=== PATIENT | female | born 1975 | race Asian ===

== ENCOUNTER 2020-03-11 20:25 | Emergency (ER) | payer OTHER, MEDICAID, SELFPAY ==
[2020-03-11 20:34] VITALS: BP 126/60; PULSE 99; RESP 22; TEMP 36.7; O2SAT 96
--- NOTE | 2020-03-11 21:17 | ED.EXTPRO ---
HPI - Extremity Problem General Chief complaint: Extremity Problem,Nontraumatic Stated complaint: LEFT FOOT PAIN AND CELLULITIS Time Seen by Provider: 03/11/20 20:56 Source: patient Mode of arrival: Ambulatory Limitations: no limitations History of Present Illness HPI Narrative: 44-year-old female. History of pulmonary hypertension and heart failure. New to this area. Is on multiple medications. Has refills of these medications. Here for evaluation of swelling to her left lower extremity/foot. Patient states she has had the symptoms in the past and has been told that it potentially is an infection. She denies any fevers. No traumas. States it does hurt to walk. She does have redness/purple color to bilateral lower extremities however she states this is not new for her. She is not having any chest pain or shortness of breath. No weight gain. She is taking her Lasix which is 1 of her medicines. States that she occasionally takes an extra dose when she feels like she is retaining water. She has not had to do this recently. Review of Systems Constitutional Constitutional: Denies fever(s) and Denies headache(s) ENT Ears, Nose, Mouth, and Throat: Denies headache(s) Cardiovascular Cardiovascular: Denies chest pain and Denies dyspnea Respiratory Respiratory: Denies dyspnea Musculoskeletal Musculoskeletal: Denies tingling Comments: Left foot pain Integumentary/Breasts Comments: Redness to the left lower extremity Neurologic Neurologic: Denies behavioral changes, Denies headache(s) and Denies tingling Psychiatric Psychiatric: Denies behavioral changes Hematologic/Lymphatic Hematologic/Lymphatic: Denies easy bleeding and Denies easy bruising Patient History Medical History Pulmonary hypertension (Acute) Social History Smoking Status: Current every day smoker Smoking Status: Current every day smoker Exam Initial Vital Signs Initial Vital Signs: Vital Signs Temperature 98.1 F 03/11/20 20:34 Pulse Rate 99 H 03/11/20 20:34 Respiratory Rate 22 03/11/20 20:34 Blood Pressure 126/60 03/11/20 20:34 Pulse Oximetry 96 03/11/20 20:34 Const General: cooperative Limitations: mental status not altered [facility] Head: normal to inspection and normocephalic Cardio Pulses: dorsalis pedis present bilaterally Skin Other: She does have a purple/red discoloration of bilateral lower extremities that extends above the knees. She also has this on her upper extremities. Capillary refill approximately 3-4 seconds. She states that this discoloration is not new for her. She states it has been told in the past is related to her heart. Neuro Cognition: normal cognition Speech: speech normal Gait: normal gait Motor: muscle tone normal throughout Sensory Exam: no sensory deficits noted Extrem Other: Patient with 1+ pitting edema to the dorsum of the left foot. Rest of her orthopedic exam unremarkable. No tenderness to palpation over the left foot Course Vital Signs Vital signs: Vital Signs - 8 hr 03/11/20 20:34 Temperature 98.1 F Pulse Rate 99 H Respiratory Rate 22 Blood Pressure 126/60 Pulse Oximetry 96 MDM - Extremity (Nontraumatic) MDM Narrative Medical decision making narrative: I feel that the left lower extremity symptoms the patient has today is less likely a cellulitis. She is afebrile. She also reports no trauma. I have low suspicion for DVT. She does have significant color change to bilateral lower extremities but again patient states this is not new. We did discuss potentially increasing her Lasix over the next couple days to see if this does not improve her symptoms. She has no chest pain or shortness of breath. Feel that we could hold on further workup for now. She does have refills on all of her medications. She was instructed to contact the pharmacy of her choice that she can get the refills transitioned into the local area. She was also given phone number for primary provider in the local area. She expressed understanding and agreement this plan. Discharge Plan Departure Patient Disposition: Home Clinical Impression: Peripheral edema Discharge Date/Time: 03/11/20 21:22 Instructions: DI for Peripheral Edema, Unilateral Activity Restrictions/Additional Instructions: I do recommend that you continue all of your medications as directed. I also recommend that you may contact with your pharmacy of choice tomorrow to discuss having your prescriptions transferred. It is important that you continue with these medicines. I recommend that you contact the health resource is coordinator here at the [facility] at [phone]. They can help you establishing a primary provider. Return to the emergency department for any new or worsening symptoms
== END 2020-03-11 21:22 | disposition home or self-care (01) ==
PROVIDERS: Emergency Provider Emergency Medicine
DX: R60.9 Edema, unspecified (principal)
CPT/HCPCS: 99281